=== PATIENT | male | born 1975 | race African-American/Black ===

== ENCOUNTER 2025-09-29 21:01 | Emergency (ER) | payer OTHER ==
[~2025-09-29] VITALS: Ht 180.3 cm; Wt 117.3 kg
[2025-09-29 21:24] VITALS: TEMP 36.8; O2SAT 98
[2025-09-29 23:13] LABS: BASOPHILS % 1.0 % (0.0-2.0); EOSINOPHILS % 1.2 % (0.0-5.0); HEMATOCRIT. 52.6 % (42.0-52.0); HEMOGLOBIN. 17.0 g/dL (14.0-18.0); LYMPHOCYTES % 22.5 % (20.0-50.0); MEAN PLATELET VOLUME 10.4 fl (7.4-10.4); MONOCYTES % 5.9 % (2.0-8.0); NEUTROPHILS % 69.4 % (40.0-76.0); PLATELET 248 x1000/uL (130-400); RED BLOOD CELL COUNT 5.98 mill/uL (4.7-6.1); RED CELL DISTRIBUTION WIDTH 15.0 % (11.6-14.6)
[2025-09-29 23:26] LABS: CREATININE 1.9 mg/dL (0.6-1.3); UREA NITROGEN BLOOD 16.0 mg/dL (9-23)
[2025-09-29 23:27] LABS: TROPONIN I HIGH SENSITIVITY 12 ng/L (3.0-53)
[2025-09-29 23:28] LABS: INR 1.0
[2025-09-30] MEDS ORDERED: XAR15 MT (00:10)
[2025-09-30 00:41] VITALS: BP 147/98; PULSE 67; RESP 14; O2SAT 99
[2025-09-30 00:46] LABS: *AMPHETAMINES SCREEN URINE NEGATIVE (NEGATIVE); *BARBITURATES SCREEN URINE NEGATIVE (NEGATIVE); *BENZODIAZEPINES SCREEN URINE NEGATIVE (NEGATIVE); *COCAINE SCREEN URINE NEGATIVE (NEGATIVE)
[2025-09-30 00:47] LABS: CANNABINOID URINE SCREEN PRESUMPTIVE POSITIVE (NEGATIVE); ECSTASY MDMA SCREEN URINE NEGATIVE (NEGATIVE); METHADONE URINE SCREEN NEGATIVE (NEGATIVE); OPIATES URINE SCREEN NEGATIVE (NEGATIVE); PHENCYCLIDINE URINE SCREEN NEGATIVE (NEGATIVE)
== END 2025-09-30 00:44 | disposition home or self-care (01) ==
LOC: ER 21:01
DX: I48.91 Unspecified atrial fibrillation (principal); I10 Essential (primary) hypertension; Q24.0 Dextrocardia; E78.00 Pure hypercholesterolemia, unspecified; Z79.899 Other long term (current) drug therapy
CPT/HCPCS: 36415; 71045; 80048; 80305; 80320; 83880; 84484; 85025; 93005; 99285; G0480